=== PATIENT | male | born 1975 | race Caucasian/White ===

== ENCOUNTER 2019-05-14 17:56 | Emergency (ER) | payer OTHER, SELFPAY ==
[2019-05-14 18:03] VITALS: BP 118/73; PULSE 88; RESP 16; TEMP 36.3; O2SAT 99
--- NOTE | 2019-05-14 18:18 | ED.GENADULT ---
HPI - General Adult General Chief complaint: Urogenital-Male Stated complaint: PAINFUL URINATION/FEVER/DIFF URINATING Time Seen by Provider: 05/14/19 18:18 Source: patient and RN notes reviewed Mode of arrival: ambulatory Limitations: no limitations History of Present Illness HPI narrative: This is a 43 years old male presented office for evaluation of possible UTI. Symptoms began on Sunday with fever achy and stuffy nose. He did not have any cough, shortness of breath, vomiting or diarrhea. Stated he felt constipated, he has not had any bowel movement for the last 2-day. He also reported urinary frequency/urgency with a small discharge. He is sexually active, faithful to his for many years. Denies concern for STD. No treatment prior to arrival. Denies history of UTI or kidney stones in the past. Related Data Home Medications Medication Instructions Recorded Confirmed ranitidine HCl 150 mg tablet 150 mg PO DAILY 04/28/19 Allergies Allergy/AdvReac Type Severity Reaction Status Date / Time No Known Allergies Allergy Verified 04/28/19 09:13 Review of Systems Review of Systems: Narrative: CONSTITUTIONAL: Denies fever ENT: Denies rhinorrhea, congestion, sore throat, otalgia. CARDIOVASCULAR: Denies chest pain, palpitation RESPIRATORY: Denies dyspnea, wheezing, cough GASTROINTESTINAL: Denies abdominal pain, vomiting, diarrhea. Reports nausea GENITOURINARY: Denies hematuria SKIN: Denies rash MUSCULOSKELETAL: Denies acute back pain NEUROLOGIC: Denies lightheaded PMFSH Family History Family History Mother Breast cancer Father Hypertension Grandparent Lung cancer Acute myocardial infarction Social History Social History Smoking status: Current some day smoker Smokeless tobacco user: chewing tobacco Alcohol intake: current Substance use: never Comments At time of signature, I agree with nursing past medical, surgical, social and family history. There is no relevant family history pertinent to the presenting complaint. Exam Narrative: Exam Narrative: GENERAL: This is a well-nourished, well-developed patient, in no apparent distress. CARDIOVASCULAR: Regular rate and rhythm without murmurs, gallops, or rubs. RESPIRATORY: Clear to auscultation. Breath sounds equal bilaterally. No wheezes, rales, or rhonchi. GASTROINTESTINAL: Abdomen soft, non-tender, nondistended. Bowel sounds are active. No hepato-splenomegaly, or palpable masses. No guarding. SKIN: warm, intact with no suspicious lesions or rash, good texture and turgor. NEURO: awake, alert, and oriented to person, place and time. There were no obvious focal neurologic abnormalities. Steady gait BACK: No flank tenderness. [place] Coma Scale Eye Opening: Spontaneous 4 [place] Coma Scale Motor: Obeys Commands 6 [place] Coma Scale Verbal: Oriented 5 Course Vital Signs Vital signs: Vital Signs Temperature 97.3 F L 05/14/19 18:03 Pulse Rate 88 05/14/19 18:03 Respiratory Rate 16 05/14/19 18:03 Blood Pressure 118/73 05/14/19 18:03 Pulse Oximetry 99 05/14/19 18:03 Temperature 97.3 F L 05/14/19 18:03 Pulse Rate 88 05/14/19 18:03 Respiratory Rate 16 05/14/19 18:03 Blood Pressure 118/73 05/14/19 18:03 Pulse Oximetry 99 05/14/19 18:03 Medical Decision Making MDM Narrative Medical decision making narrative: Discharge instructions reviewed with patient, as well as provided in writing per nursing staff. The instructions also include specific and strict return/GO TO THE ER as well as f/u information. All questions have been answered, and the patient deny any further questions with discharge and discharge plan. Differential Diagnosis Differential Diagnosis: Cystitis, Nephrolithiasis, Nephritis, pyelonephritis, epididymitis Vital Signs Vital Signs: Vital Signs Temperature 97.3 F L 05/14/19
== END 2019-05-14 18:38 | disposition home or self-care (01) ==
PROVIDERS: Emergency Provider Nurse Practitioner; PCP Internal Medicine
DX: N39.0 Urinary tract infection, site not specified (principal); F17.220 Nicotine dependence, chewing tobacco, uncomplicated
CPT/HCPCS: 81003; 87077; 87086; 87088; 87186; 99213; G0463

== ENCOUNTER 2020-03-25 09:46 | Outpatient (CLI) | payer OTHER, SELFPAY ==
--- NOTE | ~2020-03-25 | CT_ITS ---
EXAMINATION: CT soft tissue neck wo con DATE: 03/25/2020 10:08 INDICATION: Globus sensation. TECHNIQUE: Computed tomography (CT) of the neck was performed without intravenous contrast. Automated exposure control and iterative reconstruction technique were employed. The dose-length product was 5 66.88 mGy-cm. COMPARISON: None FINDINGS: There is mild scarring at the lung apices. There is mild mucosal thickening in the paranasa l sinuses. There are no pathologically enlarged lymph nodes. There are small calcifications in the ri ght palatine tonsil. There is severe cervical spondylosis. IMPRESSION: 1. No etiology for the patient's symptoms. Reviewed, dictated and finalized at location A. R
== END 2020-03-25 09:47 | disposition home or self-care (01) ==
PROVIDERS: PCP Internal Medicine; Visit Provider Nurse Practitioner
DX: R22.1 Localized swelling, mass and lump, neck (principal)
CPT/HCPCS: 70490